=== PATIENT | female | born 1935 | race Caucasian/White ===

== ENCOUNTER 2017-05-13 18:54 | Outpatient (CLI) | payer MEDICARE | END 2017-05-13 18:55 | disposition critical access hospital (66) | DX: S09.90XA Unspecified injury of head, initial encounter (principal); R11.0 Nausea; R55 Syncope and collapse; W18.30XA Fall on same level, unspecified, initial encounter; Y93.01 Activity, walking, marching and hiking | CPT/HCPCS: A0425; A0429 ==

== ENCOUNTER 2017-05-13 19:01 | Inpatient (IN) | payer MEDICARE ==
[2017-05-13] MEDS ORDERED: SODIUM CHLORIDE 0.9% 500 ML IV ONE (19:16)
[2017-05-13] MEDS ORDERED: LIDOCAINE 1%-EPI 1:100000 20 ML MDV SUBQ STA (20:44)
[2017-05-13] MEDS ORDERED: LIDOCAINE 1%-EPI 1:100000 20 ML MDV ONE (20:45)
[2017-05-13] MEDS ORDERED: ONDANSETRON 4 MG/2 ML VIAL IVP PRN ×2 (22:24→22:43)
[2017-05-13] MEDS ORDERED: SODIUM CHLORIDE FLUSH 0.9% 10 ML SYRINGE IVP PRN (22:24)
[2017-05-13] MEDS ORDERED: ACETAMINOPHEN 325 MG TABLET PO PRN ×2 (22:24→22:43)
[2017-05-13] MEDS ORDERED: ALBUTEROL NEB 2.5 MG/3 ML INH PRN ×2 (22:24→22:43)
[2017-05-13] MEDS ORDERED: POTASSIUM BICARB 25 MEQ TABLET PO STA (22:30)
[2017-05-13] MEDS ORDERED: SODIUM CHLORIDE 0.9% 1,000 ML IV SCH (23:00)
[2017-05-13] MEDS ORDERED: FAMOTIDINE 20 MG/50 ML 50 ML IV SCH (23:00)
[2017-05-13] MEDS ORDERED: POTASSIUM CHLOR 20 MEQ/100 ML 100 ML IV ONE (23:11)
[2017-05-13] MEDS: SODIUM CHLORIDE 0.9% 1,000 ML IV SCH (23:22)
[2017-05-13] MEDS: MAGNESIUM SULFATE 2 GRAM 50 ML IV SCH (23:43)
[2017-05-13] MEDS ORDERED: POTASSIUM BICARB 25 MEQ TABLET PO ONE (23:49)
[2017-05-14] MEDS: SODIUM CHLORIDE FLUSH 0.9% 10 ML SYRINGE IVP PRN
[2017-05-14] MEDS: MAGNESIUM SULFATE 2 GRAM 50 ML IV SCH (00:58)
[2017-05-14] MEDS ORDERED: MAGNESIUM SULFATE 2 GRAM 50 ML IV ONE (03:37)
[2017-05-14] MEDS ORDERED: SODIUM CHLORIDE FLUSH 0.9% 10 ML SYRINGE IVP SCH (06:00)
[2017-05-14] MEDS: LEVOTHYROXINE 125 MCG TABLET PO SCH (06:11)
[2017-05-14] MEDS: SODIUM CHLORIDE FLUSH 0.9% 10 ML SYRINGE IVP SCH ×3 (06:11→21:45)
[2017-05-14] MEDS ORDERED: NON FORMULARY MED (Lovastatin [Lovastatin] 40 MG) PO SCH (09:00)
[2017-05-14] MEDS: ATORVASTATIN 10 MG TABLET PO SCH (10:46)
[2017-05-14] MEDS: METOPROLOL TARTRATE 50 MG TABLET PO SCH (10:46)
[2017-05-14] MEDS: FAMOTIDINE 20 MG/50 ML 50 ML IV SCH ×2 (10:49→21:44)
[2017-05-14] MEDS: SODIUM CHLORIDE 0.9% 1,000 ML IV SCH (13:37)
[2017-05-14] MEDS: OXYBUTYNIN 5MG TABLET PO SCH ×3 (13:43→21:45)
[2017-05-14] MEDS ORDERED: POTASSIUM CHLOR 20 MEQ/100 ML 100 ML IV SCH (19:55)
[2017-05-14] MEDS ORDERED: POTASSIUM CHLOR 10 MEQ/100 ML 100 ML IV SCH ×2 (21:01→21:02)
[2017-05-15] MEDS: SODIUM CHLORIDE FLUSH 0.9% 10 ML SYRINGE IVP PRN ×2 (00:53→06:24)
[2017-05-15] MEDS: SODIUM CHLORIDE FLUSH 0.9% 10 ML SYRINGE IVP SCH (06:24)
[2017-05-15] MEDS: LEVOTHYROXINE 125 MCG TABLET PO SCH (06:25)
[2017-05-15] MEDS: OXYBUTYNIN 5MG TABLET PO SCH (09:20)
[2017-05-15] MEDS: ATORVASTATIN 10 MG TABLET PO SCH (09:20)
[2017-05-15] MEDS: METOPROLOL TARTRATE 50 MG TABLET PO SCH (09:20)
== END 2017-05-15 11:24 | disposition home or self-care (01) | DRG 641 ==
DX: R41.0 Disorientation, unspecified (principal); E87.1 Hypo-osmolality and hyponatremia; S01.01XA Laceration without foreign body of scalp, initial encounter; E03.9 Hypothyroidism, unspecified; I10 Essential (primary) hypertension; E78.00 Pure hypercholesterolemia, unspecified; E78.5 Hyperlipidemia, unspecified; E87.6 Hypokalemia; E83.42 Hypomagnesemia; M81.0 Age-related osteoporosis without current pathological fracture; Z87.891 Personal history of nicotine dependence; Z79.899 Other long term (current) drug therapy; W10.9XXA Fall (on) (from) unspecified stairs and steps, initial encounter; Y93.01 Activity, walking, marching and hiking; Y92.9 Unspecified place or not applicable; Y99.8 Other external cause status; Z66 Do not resuscitate